=== PATIENT | female | born 1970 ===

== ENCOUNTER 2020-01-16 08:22 | Outpatient (REF) | payer SELFPAY | END 2020-01-16 08:23 | disposition home or self-care (01) | LOC: HO.HAP 08:22 | PROVIDERS: PCP Pediatrics; Referring Provider Pediatrics; Visit Provider Pediatrics | DX: Z13.89 Encounter for screening for other disorder (principal) | CPT/HCPCS: 92700 ==

== ENCOUNTER → 2020-04-06 14:02 | Outpatient (BNVA) | payer BC, SELFPAY | PROVIDERS: Visit Provider Orthopaedic Surgery ==

== ENCOUNTER 2020-10-25 10:58 | Outpatient (REF) | payer MEDICAID, SELFPAY ==
--- NOTE | 2020-10-25 11:14 | MHC.AU.P13 ---
Hearing Instrument Problem Date of Visit: 10/25/20 Right Ear: Nitriles Lab Technician: Phonak Model: Audeo M50-13T Serial Number: [id number] Repair Warranty: 12/10/2021 Battery Size: 13 Color: Champagne Machine Shop Instructor: 0M Type of Dome: Small Vented Dome Type of Wax Guard: CeruShield Dispensed By: [facility] Date of Fittin09/20/2018 Left Ear: Nitriles Lab Technician: Phonak Model: Audeo M50-13T Serial Number: [id number] Repair Warranty: 12/10/2021 Battery Size: 13 Color: Champagne Machine Shop Instructor: 0M Type of Dome: Small Vented Dome Type of Wax Guard: CeruShield Dispensed By: [facility] Date of Fittin09/20/2018 Follow-Up Summary: Right aid brought in with broken rubber goods tester. Cleaned and replaced size 0M right rubber goods tester and small vented dome - amplifying clearly. Recommendations: Recommendations: Hearing instrument follow-up or maintenance as needed. Diagnosis Code(s): Primary Diagnosis: H90.3 Bilateral Sensorineural Hearing Loss Signature: Provider: TESSA Rowland-
== END 2020-10-25 10:59 | disposition home or self-care (01) ==
LOC: HO.HAP 10:58
PROVIDERS: Visit Provider Pediatrics
DX: Z13.89 Encounter for screening for other disorder (principal)

== ENCOUNTER 2021-09-29 10:06 | Outpatient (REF) | payer MEDICAID, SELFPAY | END 2021-09-29 10:07 | disposition home or self-care (01) | LOC: HO.HAP 10:06 | DX: Z13.89 Encounter for screening for other disorder (principal) ==

== ENCOUNTER 2021-11-22 10:14 | Outpatient (REF) | payer MEDICAID, SELFPAY | END 2021-11-22 10:15 | disposition home or self-care (01) | LOC: HO.SH 10:14 | PROVIDERS: Visit Provider Internal Medicine Sports Medicine | DX: Z01.118 Encounter for examination of ears and hearing with other abnormal findings (principal); H90.3 Sensorineural hearing loss, bilateral | CPT/HCPCS: 92553; 92555; 92567; 92593; V5011 ==

== ENCOUNTER 2022-10-24 07:52 | Outpatient (REF) | payer OTHER, SELFPAY ==
--- NOTE | 2022-10-24 08:27 | MHC.AU.HA3 ---
Hearing Instrument Follow-Up- Binaural Date of Visit: 10/24/22 Right Ear: Milo, Model, Color, Serial Number: Marbella Chatman [id number] SN: [id number] Color: Champagne Assembly Machine Tender Repair Warranty: 12/10/2021 Assembly Machine Tender Loss and Damage Warranty: 12/10/2021 Battery Size: 13 Global Sales Director/Slim Tube: 0M Earmold/Dome/CShell/SlimTip:Small vented dome Type of Wax Guard: CeruShield Dispensed By: [facility] Date of Fittin09/20/2018 Left Ear: Milo, Model, Color, Serial Number: Marbella Chatman [id number] SN: [id number] Color: Lakeshae Assembly Machine Tender Repair Warranty: 12/10/2021 Assembly Machine Tender Loss and Damage Warranty: 12/10/2021 Battery Size: 13 Global Sales Director/Slim Tube: 0M Earmold/Dome/CShell/SlimTip: Small vented dome Type of Wax Guard: CeruShield Dispensed By: [facility] Date of Fittin09/20/2018 Follow-Up Summary: Ivonne reported that her right hearing aid has been intermittent. She has tried changing the domes and wax guards with no improvement. Confirmed intermittency in office - Replaced right foil spinner with improvement in sound quality. Cleaned both hearing aids. Vacuumed microphones and replaced domes, wax guards, and retention tails. Some rust noted in right battery compartment - cleaned. Ivonne reported an immediate improvement in sound quality in office. Otoscopy revealed slight wax in the right ear and significant wax in the left ear. Ivonne will contact her PCP for wax removal. Recommendations: Hearing instrument follow-up or maintenance as needed. Please contact our clinic with any questions or concerns. Diagnosis Code(s): Primary Diagnosis: H90.3 Bilateral Sensorineural Hearing Loss Signature: Provider: Timothy Simms, [facility]
== END 2022-10-24 07:53 | disposition home or self-care (01) ==
LOC: HO.HAP 07:52
PROVIDERS: Visit Provider Internal Medicine
DX: Z46.1 Encounter for fitting and adjustment of hearing aid (principal); H90.3 Sensorineural hearing loss, bilateral
CPT/HCPCS: V5299

== ENCOUNTER 2023-02-07 10:47 | Outpatient (REF) | payer OTHER, SELFPAY | END 2023-02-07 10:48 | disposition home or self-care (01) | LOC: HO.HAP 10:47 | PROVIDERS: Visit Provider Internal Medicine Sports Medicine | DX: Z46.1 Encounter for fitting and adjustment of hearing aid (principal); H90.3 Sensorineural hearing loss, bilateral | CPT/HCPCS: 92592; 99499 ==

== ENCOUNTER 2023-02-08 14:21 | Outpatient (REF) | payer OTHER, SELFPAY | END 2023-02-08 14:22 | disposition home or self-care (01) | LOC: HO.HAP 14:21 | PROVIDERS: Visit Provider Internal Medicine Sports Medicine | DX: Z13.89 Encounter for screening for other disorder (principal) ==

== ENCOUNTER 2023-03-27 13:06 | Outpatient (REF) | payer OTHER, SELFPAY ==
--- NOTE | 2023-03-27 14:23 | MHC.AU.HA3 ---
Hearing Instrument Follow-Up- Binaural Date of Visit: 03/27/23 Right Ear: Milo, Model, Color, Serial Number: Marbella Chatman [id number] SN: [id number] Color: Lakeshae Tire Inspector Repair Warranty: 12/10/2021 Tire Inspector Loss and Damage Warranty: 12/10/2021 [facility] Service Plan: Battery Size: 13 Personal Banking Representative/Slim Tube: 0M Earmold/Dome/CShell/SlimTip:Small vented dome Type of Wax Guard: CeruShield Dispensed By: [facility] Date of Fittin09/20/2018 Left Ear: Milo, Model, Color, Serial Number: Marbella Chatman [id number] SN: [id number] Color: Lakeshae Tire Inspector Repair Warranty: 12/10/2021 Tire Inspector Loss and Damage Warranty: 12/10/2021 [facility] Service Plan: Battery Size: 13 Personal Banking Representative/Slim Tube: 0M Earmold/Dome/CShell/SlimTip: Small vented dome Type of Wax Guard: CeruShield Dispensed By: [facility] Date of Fittin09/20/2018 Follow-Up Summary: Ivonne reports she experienced a minor stroke last week where she lost feeling in the right side of her body and hearing in her right ear. She reports she has started to regain feeling in her leg, and her primary care expects this to continue to improve. Listening check of her hearing aid ok; a quick pure tone air conduction screening shows a significant decrease in hearing. Increased gain in that hearing aid for time being; Ivonne knows to return if adjustments are needed if/as symptoms improve. Recommended following up with her PCP to discuss the change in her hearing and if ENT consult is warranted. Full audiologic evaluation recommended. Recommendations: Recommendations: Follow up with managing PCP. Diagnosis Code(s): Primary Diagnosis: H90.3 Bilateral Sensorineural Hearing Loss Signature: Provider: Baltazar Tanner, [facility]
== END 2023-03-27 13:07 | disposition home or self-care (01) ==
LOC: HO.HAP 13:06
PROVIDERS: Visit Provider Internal Medicine Sports Medicine
DX: Z46.1 Encounter for fitting and adjustment of hearing aid (principal); H90.3 Sensorineural hearing loss, bilateral
CPT/HCPCS: 92592

== ENCOUNTER 2023-03-28 13:39 | Outpatient (REF) | payer OTHER, SELFPAY ==
--- NOTE | 2023-03-28 14:34 | MHC.AU.HA3 ---
Hearing Instrument Follow-Up- Binaural Date of Visit: 03/28/23 Universal Banker Used: Right Ear: Milo, Model, Color, Serial Number: Marbella Chatman [id number] SN: [id number] Color: Champagne Safe Expert Repair Warranty: 12/10/2021 Safe Expert Loss and Damage Warranty: 12/10/2021 [facility] Service Plan: Battery Size: 13 Hazardous Waste Management Specialist/Slim Tube: 0M Earmold/Dome/CShell/SlimTip:Small vented dome Type of Wax Guard: CeruShield Dispensed By: [facility] Date of Fittin09/20/2018 Left Ear: Milo, Model, Color, Serial Number: Marbella Chatman [id number] SN: [id number] Color: Rodagne Safe Expert Repair Warranty: 12/10/2021 Safe Expert Loss and Damage Warranty: 12/10/2021 [facility] Service Plan: Battery Size: 13 Hazardous Waste Management Specialist/Slim Tube: 0M Earmold/Dome/CShell/SlimTip: Small vented dome Type of Wax Guard: CeruShield Dispensed By: [facility] Date of Fittin09/20/2018 Follow-Up Summary: Ivonne reports her right aid sounds distorted and staticky since turning it up yesterday. Decreased gain to a comfortable volume. She plans on contacting her primary care doctor to speak to him about if an ENT consult is necessary. Recommendations: Recommendations: Hearing instrument follow-up or maintenance as needed. Recommendations (Other): Diagnosis Code(s): Primary Diagnosis: H90.3 Bilateral Sensorineural Hearing Loss Secondary Diagnosis: Signature: Student/Clinical Fellow: I have reviewed/agreed with student/fellow documentation: Provider: Baltazar Tanner, [facility]
== END 2023-03-28 13:40 | disposition home or self-care (01) ==
LOC: HO.HAP 13:39
PROVIDERS: Visit Provider Internal Medicine
DX: Z13.89 Encounter for screening for other disorder (principal)

== ENCOUNTER 2024-01-17 14:48 | Outpatient (REF) | payer OTHER, SELFPAY ==
--- NOTE | 2024-01-17 15:37 | MHC.AU.HA1 ---
Hearing Aid Evaluation Date of Visit: 01/17/24 Historical Information: Description of Hearing: Moderate to moderately severe sensorineural hearing loss bilaterally Current personal amplification information, if applicable: Phonak Audeo M50-13T Summary: Ivonne is here for a hearing aid evaluation, seen by Dr Fajardo's office recently for an updated audiogram and signed medical clearance. Ivonne's current hearing aids are over 5 years old; her current hearing loss would be more appropriately fit with stronger receivers and earmolds, which will also help the retention issues Ivonne has had lately. She is also interested in rechargeable hearing aids, which will improve ease of use given her right sided numbness from a stroke earlier this year. Impressions taken without incident. Selected Phonak Audeo I50-R hearing aids [facility]. Will submit prior auth to [facility] Aid Prescription: Based on the individual?s shared listening needs, communication environments, dexterity, desire for connectivity, and personal preferences, the following prescription for amplification has been made: Right ear: Make, Model, Color: Phonak Audeo I50-R Color: [facility] Battery Size: Rechargeable Test And Turn Up Technician/Slim Tube: 0M Type of Earmold/Dome/CShell/SlimTip: c-shell canal lock Left ear: Left ear prescription to be same as Right Hearing Aid above: Make, Model, Color: Phonak Audeo I50-R Color: [place] Battery Size: Rechargeable Test And Turn Up Technician/Slim Tube: 0M Type of Earmold/Dome/CShell/SlimTip: c-shell canal lock Accessories/Assistive Technology Recommended: harger Plan of Care: Patient wishes to purchase hearing aids as prescribed Action Taken/Action Needed: Earmold Impressions Taken Medical Clearance to be requested from PCP/ENT Hearing Instrument Fitting to be scheduled when materials arrive Comments: Primary Diagnosis: H90.3 Bilateral Sensorineural Hearing Loss Signature: Provider: Baltazar Tanner, [facility]
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
--- OUTSIDE RECORDS SUMMARY | 2024-01-23 04:08 | XMS_ITS | Data Portability ---
Author Organization [place] - [facility], Allergy Address [address] [place] [address] Care Team Providers Care Hair Mixer Name Role Phone JESUS REYES Referring Provider Assessment Encounter Date Assessment Date Assessment LastModified [...] testing today, with results as noted below. [email or web address] Not available 01/02/2024 15:24:16 Plan of Treatment [...] Abnormal Flag Note LastModifiedBy Organization Detail LastModifiedTime 01/02/2003/23/2023 MRI, brain + brain stem, w/wo contr ast No observ ation record ed. Not Available 12/14 16:33:27 01/03/20 audio gram No observ ation record ed. BARCODE Not Available 2023 12:31:47 Result Notes None recorded. Problems Name Problem SNOMED Code Status Onset Date Resolution Date Notes Provider Name and Address Organization Details Recorded Time Sensorin eural hearing loss of bilatera l ears 328824562 Active 2016 Sensorin eural hearing loss, bilatera l; Note: Date Diagnose d: 11/24/19 17 12:20 PM (H90.3) Not Available [facility] 4 03:22:00 Superfic ial mycosis 006119435 Completed 201809/14/2023 Other specifie d superfic ial mycoses; Note: Date Diagnose d: 04/16/2018 4:40 PM (B36.8) Not Available [facility] 4 03:22:00 Impacted cerumen in right ear [id number] 04609 Active 2018 Impacted cerumen, right ear; Note: Date Diagnose d: 04/16/2018 4:40 PM (H61.21) Not Available [facility] 4 03:22:00 Impacted cerumen in left ear 32313700123 40794 Active 2016 Impacted cerumen, left ear; Note: Date Diagnose d: 11/24/19 17 12:43 PM (H61.22) Not Available [facility] 4 03:22:00 Problem Notes None recorded. Procedures Surgical History Date Name Laterality Status Provider Name and Address Organization Details Recorded Time 4 Comp Audio with Tymps (79287 & 50709) completed Maddison Montalvo [place] - [facility] 01/02/2024 15:49:21 Cerumen removal with microscope left completed FESTUS ORANTES MD [address] [place] [address], [place], [address], [place] - [facility] 01/02/2024 16:31:31 Imaging Results Imaging Date Name Status LastModified by Organiz ation Details LastModified Time 03/23/2023 MRI, brain + brain stem, w/wo contrast completed [email or web address] Information not available 01/02/2024 16:33:27 01/03/2024 audiogram completed BARCODE Information no t available 01/03/2024 12:31:47 Procedure Notes None recorded. Medical Equipment None Reported. Allergies Allergen ID Allergen Name Allergen Category Reaction Reaction Severity Criticality Documentation Date Start Date Code Code System Note Provider Name and Address Organization Details Recorded Time 69930 aspirin medicatio n other Not available Not available 06/26/2023 1191 RxNorm React ion: unkno wn, unspe cifie d;; Not Available [facility] 4 00:48:59 Medications Name Sig Start Date [...] topical cream 01/01 completed Medicati on ID: [id number] P kyreerikeisha d By Name: KOFI Murphy nd Name: [...] mg tablet 01/01 completed Medicati on ID: [id number] D uration Value: 90 Brand Name: lisinopr il Send Method: E-Prescr ibed Sub s Allowed: subs OK Medic ationGen ericName : lisinopr il Not Available Not [...] mg tablet 01/01 completed Medicati on ID: [id number] B rand Name: iron Sen d Method: E-Prescr ibed Sub s Allowed: subs OK Medic ationGen ericName : iron Not Available Not Available Not Available Vitamin D3 25 mcg (1,000 unit) capsule 2016 active Medicati on ID: [id number] B rand Name: Vitamin D3 Send Method: E-Prescr ibed Sub s Allowed: subs OK Medic ationGen ericName : Vitamin D3 Not Available Not [...] e Short Pen Needle 31 gauge x /16 USE DIRECTED FOR TYPE 2 DIABETES MELLITUS [...] test strips 01/01 completed Medicati on ID: [id number] D uration Value: 90 Brand Name: Accu-Roseanna [...] Details Last Updated DateTime 01/02/2024 152.4 cm 88821.87 g Bette Villareal [place] - [facility] 01/02/2024 15:00:12 Social History None recorded. [...] Disorder N Anesthesia Complications N Heart Attack ([place]) N Other Skin Condition N Diabetes Y [...] Diagnosis/Indication Diagnosis SNOMED-CT Code Diagnosis ICD10 Code [id number] FESTUS ORANTES MD [facility] [address] [address] 01/02/2024 14:07:09 01/02/2024 16:29:58 Sensorineural hearing loss of bilateral ears 453029543 H90.3 Impacted c erumen in left ear [id number] 563606 H61.22 Family his tory of hearing loss 233805268 Z82.2 Health Concerns Section Related Observation LastModified by Organization Detai ls LastModified Time None Recorded Concern Status LastModified by Organization Details LastModified Time None Recorded Advance Directives Directive None Recorded Payers Encounter Date Sequence Insurance Name Policy Number Policy Roberts Covered Member ID Roberts Member ID Guarantor Name 01/02/[address] [place] [address] [id number] Ivonne Ariza [id number] Ivonne Ariza Notes Date Note Type Note [...] 2019.Patient has bilateral hearing aids dispensed at [facility] audiology. These are 7 years old.Patient [...] flushing. She had her hearing tested in [facility] recently, but this audiometric testing was not available for my review today. She also had hearing testing at [facility] audiology, but this was not available for my review today.Incidentally, patient's mother had early onset hearing loss, as does her son, who is a patient of ours. FESTUS ORANTES MD [address] [place] [address], [place], [address], [facility] - [facility] 01/02/2024 16:32:21 OBGyn Episode No OBEpisode recorded.
== END 2024-01-17 14:49 | disposition home or self-care (01) ==
LOC: HO.HAP 14:48
PROVIDERS: Visit Provider Otolaryngology
DX: Z46.1 Encounter for fitting and adjustment of hearing aid (principal); H90.3 Sensorineural hearing loss, bilateral
CPT/HCPCS: 92591; V5275

== ENCOUNTER 2024-02-25 13:57 | Outpatient (REF) | payer OTHER, SELFPAY ==
--- OUTSIDE RECORDS SUMMARY | 2024-02-25 17:17 | XMS_ITS | Data Portability ---
Author Organization [place] - [facility], Allergy Address [address] [place] [address] Care Team Providers Care Drapery Inspector Name Role Phone JESUS REYES Referring Provider [phone] Assessment Encounter Date Assessment Date Assessment LastModified [...] testing today, with results as noted below. [email or web address] Not available 01/02/2024 15:24:16 Plan of Treatment [...] contr ast No observ ation record ed. [email or web address] Not Available 12/14 16:33:27 01/03/20 audio gram No observ ation record ed. BARCODE Not Available 2023 12:31:47 Result Notes None recorded. Problems Name Problem SNOMED Code Status Onset Date Resolution Date Notes Provider Name and Address Organization Details Recorded Time Sensorin eural hearing loss of bilatera l ears 592326865 Active 2016 Sensorin eural hearing loss, bilatera l; Note: Date Diagnose d: 11/24/19 17 12:20 PM (H90.3) Not Available [facility] 4 03:22:00 Superfic ial mycosis 331045718 Completed 201809/14/2023 Other specifie d superfic ial mycoses; Note: Date Diagnose d: 04/16/2018 4:40 PM (B36.8) Not Available [facility] 4 03:22:00 Impacted cerumen in right ear 34788096383 59519 Active 2018 Impacted cerumen, right ear; Note: Date Diagnose d: 04/16/2018 4:40 PM (H61.21) Not Available [facility] 4 03:22:00 Impacted cerumen in left ear 67709523185 24648 Active 2016 Impacted cerumen, left ear; Note: Date Diagnose d: 11/24/19 17 12:43 PM (H61.22) Not Available [facility] 4 03:22:00 Problem Notes None recorded. Procedures Surgical History Date Name Laterality Status Provider Name and Address Organization Details Recorded Time 4 Comp Audio with Tymps (15334 & 46884) completed Maddison Montalvo [place] - [facility] 01/02/2024 15:49:21 Cerumen removal with microscope left completed FESTUS ORANTES MD [address] [place] [address], [place], [address], [place] - [facility] 01/02/2024 16:31:31 Imaging Results Imaging Date Name Status LastModified by Organiz ation Details LastModified Time 03/23/2023 MRI, brain + brain stem, w/wo contrast completed [email or web address] Information not available 01/02/2024 16:33:27 01/03/2024 audiogram completed BARCODE Information no t available 01/03/2024 12:31:47 Procedure Notes None recorded. Medical Equipment None Reported. Allergies Allergen ID Allergen Name Allergen Category Reaction Reaction Severity Criticality Documentation Date Start Date Code Code System Note Provider Name and Address Organization Details Recorded Time 91180 aspirin medicatio n other Not available Not available 06/26/2023 1191 RxNorm React ion: unkno wn, unspe cifie d;; Not Available [facility] 4 00:48:59 Medications Name Sig Start [...] topical cream 01/01 completed Medicati on ID: [id number] P kyreerikeisha d By Name: KOFI Murphy [...] mg tablet 01/01 completed Medicati on ID: [id number] D uration Value: 90 Brand Name: lisinopr [...] mg tablet 01/01 completed Medicati on ID: [id number] B rand Name: iron Sen d Method: E-Prescr ibed Sub s Allowed: subs OK Medic ationGen ericName : iron Not Available Not Available Not Available Vitamin D3 25 mcg (1,000 unit) capsule 2016 active Medicati on ID: [id number] B rand Name: Vitamin D3 Send Method: [...] test strips 01/01 completed Medicati on ID: [id number] D uration Value: 90 Brand Name: Accu-Roseanna [...] Details Last Updated DateTime 01/02/2024 152.4 cm 25686.87 g Bette Villareal [place] - [facility] 01/02/2024 15:00:12 Social History None recorded. [...] Disorder N Anesthesia Complications N Heart Attack ([place]) N Other Skin Condition N Diabetes Y [...] Diagnosis/Indication Diagnosis SNOMED-CT Code Diagnosis ICD10 Code Diagnosis Note [id number] FESTUS ORANTES MD [facility] of [address] [address] 01/02/2024 14:07:09 01/02/2024 16:29:58 Sensorineural hearing loss of bilateral ears 179886253 H90.3 Patient's audiogram shows bilateral {{mild mod erate federico re Moderat matthias severe#}} sensorineu ral hearing loss with {{well maintained moderatel y reduced po or*}} speech discrimina tion. There is enough hearing loss to affect day-to-day hearing performanc e. We discussed in detail the pros and cons of amplificat ion (hearing aids). We discussed the connection between untreated hearing loss and increased risk of dementia, falling and accidents. Patient is eager to obtain new hearing aids which she will do through [facility] audiology. {{we will set them up for a hearing aid evaluation I have provided a copy of the audiogram and medical clearance for amplificat ion so the patient can pursue this at their convenienc e* I have provided a copy of the audiogram, a list of [facility] hearing aid providers, and medical clearance for amplificat ion so the patient can pursue this at their convenien e}}. Patient is medically cleared for amplificat ion {{in the right ear in the left ear bilate rally*}}.W e did discuss the fact that her speech discrimina tion is so poor that she may meet audiologic candidacy criteria for cochlear implantati on. She was very apprehensi ve about this, but we did spend some time talking about it. I gave her a cochlear implant brochure to read at home. I provided her with a cochlear implant checklist. If she wants to learn more about her potential candidacy, I have given her the contact informatio n for the [facility] Cochlear Implant Program so that she can schedule a formal cochlear implant evaluation with them. Audiologic al evaluation results:Ri ght ear:{{Norm al Normal through 2 kHz Mild M oderate* M oderately- severe Sev ere Profou nd}} {{hearing hearing. s loping to a mild slopi ng to a moderate s loping to moderately severe slo ping to severe* sl oping to profound f lat high frequency low frequency mid frequency cookie bite collins curve}} {{with sen sorineural hearing loss with* cond uctive hearing loss with mixed hearing loss with}} {{excellen t good sam r poor* no measurable }} word recognitio n.Left ear:{{Norm al Normal through 2 kHz Mild M oderate Mo derately-s evere* Sev ere Profou nd}} {{hearing hearing. s loping to a mild slopi ng to a moderate s loping to moderately severe slo ping to severe* sl oping to profound f lat high frequency low frequency mid frequency cookie bite collins curve}} {{with sen sorineural hearing loss with* cond uctive hearing loss with mixed hearing loss with}} {{excellen t good sam r poor* no measurable }} word recognitio n. Tympanomet ry:Right Ear:{{Type A* Type As Type Ad Type C Type C, shallow & rounded Ty pe B Type B with large volume Cou ld not maintain a hermetic seal}}Left Ear:{{Type A* Type As Type Ad Type C Type C, shallow & rounded Ty pe B Type B with large volume Cou ld not maintain a hermetic seal}} Impacted c erumen in left ear [id number] 697199 H61.22 Patient had deep cerumen impaction in the left ear which was cleaned out today under the binocular microscope this appears to be secondary to chronic Q-tip use. Today we spent some time talking about the fact that cerumen is a natural antibiotic , antifungal , waterproof er, and moisturize r of the delicate external auditory canal skin. The use of Q-tips strips away this natural protection and makes the ear canal skin more likely to become itchy, irritated or become infected. There is also the risk of trauma to the tympanic membranes as well. We discussed proper aural hygiene techniques to maintain the health of the external ears. Family his tory of hearing loss 596534412 Z82.2 Health Concerns Section Related Observation LastModified by Organization Detai ls LastModified Time None Recorded Concern Status LastModified by Organization Details LastModified Time None Recorded Advance Directives Directive None Recorded Payers Encounter Date Sequence Insurance Name Policy Number Policy Roberts Covered Member ID Roberts Member ID Guarantor Name 01/02/2024 1 [facility] [id number] Ivonne Bansal Annita [id number] Ivonne Bansal Annita Notes Date Note Type Note Provider Name [...] 2019.Patient has bilateral hearing aids dispensed at [facility] audiology. These are 7 years old.Patient [...] fl[place]. She had her hearing tested in [facility] recently, but this audiometric testing was not available for my review today. She also had hearing testing at [facility] audiology, but this was not available for my review today.Incidentally, patient's mother had early onset hearing loss, as does her son, who is a patient of ours. FESTUS ORANTES MD [address] [place] [address], [phone], [facility] - [facility] 01/02/2024 16:32:21 OBGyn Episode No OBEpisode recorded.
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
== END 2024-02-25 13:58 | disposition home or self-care (01) ==
LOC: HO.HAP 13:57
PROVIDERS: Visit Provider Otolaryngology
DX: Z13.89 Encounter for screening for other disorder (principal)

== ENCOUNTER 2024-03-28 09:22 | Outpatient (REF) | payer OTHER, SELFPAY | END 2024-03-28 09:23 | disposition home or self-care (01) | LOC: HO.HAP 09:22 | DX: Z13.89 Encounter for screening for other disorder (principal) ==

== ENCOUNTER 2024-04-10 14:13 | Outpatient (REF) | payer OTHER, SELFPAY ==
--- OUTSIDE RECORDS SUMMARY | 2024-04-10 17:20 | XMS_ITS | Data Portability ---
Author Organization [place] - [facility], Allergy Address [address] [place] [id number] Care Team Providers Care Job Setter Honing Name Role Phone JESUS REYES Referring Provider [...] testing today, with results as noted below. [email or web address] Not available 01/02/2024 15:24:16 Plan of Treatment [...] contr ast No observ ation record ed. [email or web address] Not Available 12/14 16:33:27 01/03/20 audio gram No observ ation record ed. BARCODE Not Available 2023 12:31:47 Result Notes None recorded. Problems Name Problem SNOMED Code Status Onset Date Resolution Date Notes Provider Name and Address Organization Details Recorded Time Sensorin eural hearing loss of bilatera l ears 303316713 Active 2016 Sensorin eural hearing loss, bilatera l; Note: Date Diagnose d: 11/24/19 17 12:20 PM (H90.3) Not Available [facility] 4 03:22:00 Superfic ial mycosis [id number] Completed 201809/14/2023 Other specifie d superfic ial mycoses; Note: Date Diagnose d: 04/16/2018 4:40 PM (B36.8) Not Available [facility] 4 03:22:00 Impacted cerumen in right ear [id number] 59474 Active 2018 Impacted cerumen, right ear; Note: Date Diagnose d: 04/16/2018 4:40 PM (H61.21) Not Available [facility] 4 03:22:00 Impacted cerumen in left ear 05508141252 61831 Active 2016 Impacted cerumen, left ear; Note: Date Diagnose d: 11/24/19 17 12:43 PM (H61.22) Not Available [facility] 4 03:22:00 Problem Notes None recorded. Procedures Surgical History Date Name Laterality Status Provider Name and Address Organization Details Recorded Time 4 Comp Audio with Tymps (28848 & 18708) completed Maddison Montalvo [place] - [facility] 01/02/2024 15:49:21 Cerumen removal with microscope left completed FESTUS ORANTES MD [address] [place] [address], [place], [phone], [place] - [facility] 01/02/2024 16:31:31 Imaging Results Imaging Date Name Status LastModified by Organiz ation Details LastModified Time 03/23/2023 MRI, brain + brain stem, w/wo contrast completed [email or web address] Information not available 01/02/2024 16:33:27 01/03/2024 audiogram completed BARCODE Information no t available 01/03/2024 12:31:47 Procedure Notes None recorded. Medical Equipment None Reported. Allergies Allergen ID Allergen Name Allergen Category Reaction Reaction Severity Criticality Documentation Date Start Date Code Code System Note Provider Name and Address Organization Details Recorded Time 21600 aspirin medicatio n other Not available Not available 06/26/2023 1191 RxNorm React ion: unkno wn, unspe cifie d;; Not Available [facility] 4 00:48:59 Medications Name Sig Start Date [...] topical cream 01/01 completed Medicati on ID: [id number] P kyreerikeisha d By Name: KOFI Murphy [...] mg tablet 01/01 completed Medicati on ID: [id number] D uration Value: 90 Brand Name: lisinopr [...] mg tablet 01/01 completed Medicati on ID: [id number] B rand Name: iron Sen d Method: E-Prescr ibed Sub s Allowed: subs OK Medic ationGen ericName : iron Not Available Not Available Not Available Vitamin D3 25 mcg (1,000 unit) capsule 2016 active Medicati on ID: [id number] B rand Name: Vitamin D3 Send Method: [...] test strips 01/01 completed Medicati on ID: [id number] D uration Value: 90 Brand Name: Accu-Roseanna [...] Details Last Updated DateTime 01/02/2024 152.4 cm 48030.87 g Bette Villareal [place] - [facility] 01/02/2024 15:00:12 Social History None recorded. [...] Disorder N Anesthesia Complications N Heart Attack ([place]) N Other Skin Condition N Diabetes Y [...] SNOMED-CT Code Diagnosis ICD10 Code Diagnosis Note [id number] FESTUS ORANTES MD [facility] [address] [id number] 01/02/2024 14:07:09 01/02/2024 16:29:58 Sensorineural hearing loss of bilateral ears [id number] H90.3 Patient's audiogram shows bilateral {{mild mod [...] hearing aids which she will do through [facility] audiology. {{we will set them up for a hearing aid evaluation I have provided a copy of the audiogram and medical clearance for amplificat ion so the patient can pursue this at their convenienc e* I have provided a copy of the audiogram, a list of [facility] hearing aid providers, and medical clearance for [...] her the contact informatio n for the [facility]chlear Implant Program so that she [...] seal}} Impacted c erumen in left ear [id number] 403331 H61.22 Patient had deep cerumen impaction in [...] ears. Family his tory of hearing loss [id number] Z82.2 Health Concerns Section Related Observation LastModified by Organization Detai ls LastModified Time None Recorded Concern Status LastModified by Organization Details LastModified Time None Recorded Advance Directives Directive None Recorded Payers Encounter Date Sequence Insurance Name Policy Number Policy Roberts Covered Member ID Roberts Member ID Guarantor Name 01/02/2024 1 [facility] [id number] Ivonne Bansal nAnita [id number] Ivonne Bansal Annita Notes Date Note Type [...] 2019.Patient has bilateral hearing aids dispensed at [facility] audiology. These are 7 years old.Patient had [...] flushing. She had her hearing tested in [facility] recently, but this audiometric testing was not available for my review today. She also had hearing testing at [facility] audiology, but this was not available for my review today.Incidentally, patient's mother had early onset hearing loss, as does her son, who is a patient of ours. FESTUS ORANTES MD [address] [place] [address], [phone], [facility] - [facility] 01/02/2024 16:32:21 OBGyn Episode No OBEpisode recorded.
== END 2024-04-10 14:14 | disposition home or self-care (01) ==
LOC: HO.HAP 14:13
PROVIDERS: PCP Internal Medicine Sports Medicine; Visit Provider Otolaryngology
DX: Z13.89 Encounter for screening for other disorder (principal)

== ENCOUNTER 2024-04-30 14:56 | Outpatient (REF) | payer OTHER, SELFPAY | END 2024-04-30 14:57 | disposition home or self-care (01) | LOC: HO.HAP 14:56 | PROVIDERS: Visit Provider Internal Medicine Sports Medicine | DX: Z13.89 Encounter for screening for other disorder (principal) ==